=== PATIENT | female | born 1990 | race African-American/Black ===

== ENCOUNTER 2018-02-04 17:49 | Emergency (ER) | payer OTHER ==
[2018-02-04 18:00] VITALS: BP 122/90
[2018-02-04] MEDS ORDERED: LIDOCAINE 1% INJ-PF (10 MG/ML) 30 ML SDV INJ ONE (18:43)
--- NOTE | 2018-02-04 19:44 | ER Document Report ---
ED Hand/Wrist Injury - General Chief Complaint: Finger Injury Stated Complaint: FINGER INJURY Time Seen by Provider: 02/04/18 18:43 Notes: Patient is a 27-year-old healthy female presenting to the emergency department with a laceration to her left index finger. Patient was cutting tomatoes at work when she sliced her finger. Injury occurred approximately 5 hours to arrival. Patient's tetanus status is up-to-date. Bleeding is controlled at this time. There is no tendon involvement TRAVEL OUTSIDE OF THE [place] IN LAST 30 DAYS: No - HPI Onset: This afternoon Where: Work Quality of pain: Pressure - Related Data Allergies/Adverse Reactions: tramadol HCl [From [facility]] Adverse Reaction (Verified 02/04/18 17:50) itchy Past Medical History - General Information source: Patient - Social History Smoking Status: Never Smoker Chew tobacco use (# tins/day): Yes Frequency of alcohol use: Rare Drug Abuse: None Lives with: Family Family History: Reviewed & Not Pertinent, Hypertension Patient has suicidal ideation: No Patient has homicidal ideation: No Pulmonary Medical History: Reports: Hx Bronchitis Neurological Medical History: Reports: Hx Migraine Renal/ Medical History: Denies: Hx Peritoneal Dialysis Musculoskeltal Medical History: Reports Hx Musculoskeletal Trauma - clavicle Psychiatric Medical History: Reports: Hx Attention Deficit Hyperactivity Disorder, Hx Bipolar Disorder Traumatic Medical History: Reports: Hx Fractures - Immunizations Immunizations up to date: Yes Hx Diphtheria, Pertussis, Tetanus Vaccination: Yes Review of Systems - Review of Systems Constitutional: No symptoms reported EENT: No symptoms reported Cardiovascular: No symptoms reported Respiratory: No symptoms reported Gastrointestinal: No symptoms reported Genitourinary: No symptoms reported Female Genitourinary: No symptoms reported Musculoskeletal: No symptoms reported Skin: No symptoms reported Hematologic/Lymphatic: No symptoms reported Neurological/Psychological: No symptoms reported Physical Exam - Vital signs Vitals: Temp Pulse Resp BP Pulse Ox 98.9 F 89 18 122/90 H 99 02/04/18 17:59 02/04/18 17:59 02/04/18 17:59 02/04/18 17:59 02/04/18 17:59 Interpretation: Normal - General General appearance: Appears well, Alert - HEENT Head: Normocephalic, Atraumatic Eyes: Normal Pupils: PERRL - Respiratory Respiratory status: No respiratory distress Chest status: Nontender Breath sounds: Normal Chest palpation: Normal - Cardiovascular Rhythm: Regular Heart sounds: Normal auscultation Murmur: No - Abdominal Inspection: Normal Distension: No distension Bowel sounds: Normal Tenderness: Nontender Organomegaly: No organomegaly - Back Back: Normal, Nontender - Extremities General upper extremity: Normal inspection, Nontender, Normal color, Normal ROM , Normal temperature General lower extremity: Normal inspection, Nontender, Normal color, Normal ROM , Normal temperature, Normal weight bearing. No: Linda's sign - Neurological Neuro grossly intact: Yes Cognition: Normal Orientation: AAOx4 Summer Coma Scale Eye Opening: Spontaneous Summer Coma Scale Verbal: Oriented [place] Coma Scale Motor: Obeys Commands Summer Coma Scale Total: 15 Speech: Normal Motor strength normal: LUE, RUE, LLE, RLE Sensory: Normal - Psychological Associated symptoms: Normal affect, Normal mood - Skin Skin Temperature: Warm - 3cm flap lac to distal lateral index finger. pt able to flex and extend from DIP. no tendon involvement. distal SMC intact Skin Moisture: Dry Skin Color: Normal Skin irregularity: Laceration Course - Vital Signs Vital signs: Temp Pulse Resp BP Pulse Ox 98.9 F 89 18 122/90 H 99 02/04/18 17:59 02/04/18 17:59 02/04/18 17:59 02/04/18 17:59 02/04/18 17:59 Procedures - Immobilization left index finger Immobilizer type: Finger protection Performed by: PCT Post-Proc Neuro Vasc Exam: Normal Alignment checked and good: Yes - Laceration/Wound Repair Left index finger Wound length (cm): 3 Wound's Depth, Shape: Flap Wound explored: Clean Wound Repaired With: Sutures Suture Size/Type: 6:0, 5:0, Vicryl, 4:0, 3:0, Ethilon, Prolene, Nylon, Other Number of Sutures: 4 Layer Closure?: No Post-procedure NV exam normal: Yes Complications: No Discharge - Discharge Clinical Impression: Finger laceration Qualifiers: Encounter type: initial encounter Finger: index finger Damage to nail status: without damage Foreign body presence: without foreign body Laterality: left Qualified Code(s): S61.211A - Laceration without foreign body of left index finger without damage to nail, initial encounter Condition: Stable Disposition: HOME, SELF-CARE Instructions: Antibiotic Ointment Protection ([facility]), Laceration Care ([facility]), Soap Cleansing ([facility]), Ibuprofen (General) ([facility]) Additional Instructions: keep wound clean and dry watch for signs of infection, redness, swelling, drainage, fever return to ED for suture removal in 10 days Motrin for discomfort Prescriptions: Ibuprofen [Motrin 800 mg Tablet] 800 mg PO Q8H #30 tablet Forms: Return to Work
[2018-02-04] MEDS ORDERED: IBUPROFEN 800 MG TABLET PO ONE (19:46)
== END 2018-02-04 19:53 | disposition home or self-care (01) ==
LOC: ER 17:49
PROC: 0HQGXZZ Repair Left Hand Skin, External Approach (ICD-10-PCS; principal; 2018-02-04)
DX: S61.211A Laceration without foreign body of left index finger without damage to nail, initial encounter (principal); W26.0XXA Contact with knife, initial encounter; Y93.G1 Activity, food preparation and clean up
CPT/HCPCS: 99283; 12002; J3490

== ENCOUNTER 2018-02-15 13:08 | Emergency (ER) | payer OTHER ==
[2018-02-15 13:15] VITALS: BP 117/92
--- NOTE | 2018-02-15 13:16 | ER Document Report ---
HPI - HPI Patient complains to provider of: Suture removal Onset: Other - 10 days Quality of pain: Throbbing Pain Level: 4 Context: 27-year-old female here for suture removal of a left palmar index fingertip that were placed 10 days ago. She works at [email or web address]. She is worried that it is infected because it still hurts. Associated Symptoms: None Exacerbated by: Movement Relieved by: Denies Similar symptoms previously: No Recently seen / treated by doctor: No - ROS ROS below otherwise negative: Yes Systems Reviewed and Negative: Yes All other systems reviewed and negative - REPRODUCTIVE Reproductive: DENIES: : Past Medical History - General Information source: Patient - Social History Smoking Status: Current Every Day Smoker Frequency of alcohol use: None Drug Abuse: None Occupation: [email or web address] Lives with: Spouse/Significant other Family History: Reviewed & Not Pertinent, Hypertension Pulmonary Medical History: Reports: Hx Bronchitis Neurological Medical History: Reports: Hx Migraine Renal/ Medical History: Denies: Hx Peritoneal Dialysis Musculoskeltal Medical History: Reports Hx Musculoskeletal Trauma - clavicle Psychiatric Medical History: Reports: Hx Attention Deficit Hyperactivity Disorder, Hx Bipolar Disorder Traumatic Medical History: Reports: Hx Fractures Surgical Hx: Negative - Immunizations Immunizations up to date: Yes Hx Diphtheria, Pertussis, Tetanus Vaccination: Yes Vertical Provider Document - CONSTITUTIONAL Agree With Documented VS: Yes Exam Limitations: No Limitations - INFECTION CONTROL TRAVEL OUTSIDE OF THE [place] IN LAST 30 DAYS: No - HEENT HEENT: Atraumatic - NECK Neck: Supple - NEURO Level of Consciousness: Awake, Alert Motor/Sensory: No Motor Deficit, No Sensory Deficit - DERM Integumentary: Laceration - Wet healing palmar left index finger laceration, no infection. Course - Vital Signs Vital signs: Temp Pulse Resp BP Pulse Ox 99.0 F 84 18 117/92 H 98 02/15/18 13:14 02/15/18 13:14 02/15/18 13:14 02/15/18 13:14 02/15/18 13:14 Discharge - Discharge Clinical Impression: Suture removal Condition: Good Disposition: HOME, SELF-CARE Instructions: Suture Removal Additional Instructions: Dry dressing and [place] May return to work Forms: Return to Work
== END 2018-02-15 13:36 | disposition home or self-care (01) ==
LOC: ER 13:08
DX: S61.211D Laceration without foreign body of left index finger without damage to nail, subsequent encounter (principal); W45.8XXD Other foreign body or object entering through skin, subsequent encounter

== ENCOUNTER 2018-05-20 20:22 | Emergency (ER) | payer SELFPAY ==
[2018-05-20] MEDS ORDERED: ONDANSETRON HCL INJ/PF 4 MG/2 ML SDV IV ONE (21:17)
[2018-05-20] MEDS ORDERED: KETOROLAC TROMETHAMINE INJ/PF 30 MG/1 ML SDV IV ONE (21:17)
[2018-05-20 21:48] LABS: ABSOLUTE BASOPHILS # (AUTO) 0.1 10^3/uL (0.0-0.2); ABSOLUTE EOSINOPHILS # (AUTO) 0.3 10^3/uL (0.0-0.6); ABSOLUTE LYMPHOCYTES (AUTO) 3.7 10^3/uL (0.5-4.7); ABSOLUTE MONOCYTES (AUTO) 0.8 10^3/uL (0.1-1.4); BASOPHILS % (AUTO) 0.7 % (0-2); EOSINOPHILS % (AUTO) 2.3 % (0-6); HEMATOCRIT 47.9 % (36.0-47.0); HEMOGLOBIN 15.8 g/dL (12.0-15.5); LYMPHOCYTES % (AUTO) 30.9 % (13-45); MEAN CORPUSCULAR HEMOGLOBIN 30.8 pg (27.0-33.4); MEAN CORPUSCULAR VOLUME 93 fl (80-97); MONOCYTES % (AUTO) 6.8 % (3-13); PLATELET COUNT 334 10^3/uL (150-450); RED BLOOD COUNT 5.13 10^6/uL (3.72-5.28); RED CELL DISTRIBUTION WIDTH 14.2 % (11.5-14.0); SEGMENTED NEUTROPHILS % (AUTO) 59.3 % (42-78); TOTAL CELLS COUNTED % (AUTO) 100 %; WHITE BLOOD COUNT 11.9 10^3/uL (4.0-10.5)
[2018-05-20 21:51] LABS: APPEARANCE,URINE CLOUDY; BILIRUBIN,URINE MODERATE (NEGATIVE); COLOR,URINE YELLOW; GLUCOSE, URINE NEGATIVE (NEGATIVE); KETONES,URINE TRACE mg/dL (NEGATIVE); LEUKOCYTE ESTERASE,URINE MODERATE (NEGATIVE); NITRITE,URINE NEGATIVE (NEGATIVE); PROTEIN,URINE 100 mg/dL (NEGATIVE); URINE SPECIFIC GRAVITY 1.028
[2018-05-20 22:07] LABS: ALANINE AMINOTRANSFERASE 38 U/L (9-52); ALBUMIN 5.1 g/dL (3.5-5.0); ALKALINE PHOSPHATASE 69 U/L (38-126); ANION GAP 16 (5-19); ASPARTATE AMINO TRANSFERASE 37 U/L (14-36); BILIRUBIN,DIRECT 0.3 mg/dL (0.0-0.4); BILIRUBIN,TOTAL 0.5 mg/dL (0.2-1.3); BLOOD UREA NITROGEN 11 mg/dL (7-20); CALCIUM 10.5 mg/dL (8.4-10.2); CARBON DIOXIDE 28 mmol/L (22-30); CHLORIDE 100 mmol/L (98-107); GLUCOSE 46 mg/dL (75-110); LIPASE 93.5 U/L (23-300); POTASSIUM 3.8 mmol/L (3.6-5.0); SODIUM 143.9 mmol/L (137-145); TOTAL PROTEIN 9.3 g/dL (6.3-8.2)
--- NOTE | 2018-05-20 22:43 | ER Document Report ---
ED Medical Screen (RME) - General Chief Complaint: Possible Kidney Stone Stated Complaint: BACK PAIN/PASSING STONES IN URINE Time Seen by Provider: 05/20/18 22:34 Mode of Arrival: Ambulatory Information source: Patient Notes: z patient is a 28-year-old female who presents with chief complaint of right- sided flank pain that radiates into her right groin. Patient reports history of kidney stones. Patient also reports dysuria and low-grade fevers at home. Patient denies any vomiting or diarrhea. Exam: Right CVA tenderness. I have greeted and performed a rapid initial assessment of this patient. A comprehensive ED assessment and evaluation of the patient, analysis of test results and completion of the medical decision making process will be conducted by additional ED providers. Dictation of this chart was performed using voice recognition software; therefore, there may be some unintended grammatical errors. TRAVEL OUTSIDE OF THE [place] IN LAST 30 DAYS: No - Related Data Allergies/Adverse Reactions: tramadol HCl [From [facility]] Adverse Reaction (Verified 02/15/18 13:09) Swelling of tongue Past Medical History Pulmonary Medical History: Reports: Hx Bronchitis Neurological Medical History: Reports: Hx Migraine Renal/ Medical History: Denies: Hx Peritoneal Dialysis Musculoskeltal Medical History: Reports Hx Musculoskeletal Trauma - clavicle Psychiatric Medical History: Reports: Hx Attention Deficit Hyperactivity Disorder, Hx Bipolar Disorder Traumatic Medical History: Reports: Hx Fractures - Immunizations Immunizations up to date: Yes Hx Diphtheria, Pertussis, Tetanus Vaccination: Yes Physical Exam - Vital signs Vitals: Temp Pulse BP Pulse Ox 99.2 F 82 125/86 H 100 05/20/18 21:23 05/20/18 21:23 05/20/18 21:23 05/20/18 21:23 Course - Vital Signs Vital signs: Temp Pulse Resp BP Pulse Ox 99.2 F 82 125/86 H 100 05/20/18 21:23 05/20/18 21:23 05/20/18 21:23 05/20/18 21:23 - Laboratory Result Diagrams: 05/20/18 21:26 05/20/18 21:26 Laboratory results interpreted by me: 05/20/18 05/20/18 05/20/18 21:26 21:26 21:26 WBC 11.9 H Hgb 15.8 H Hct 47.9 H RDW 14.2 H Glucose 46 L Calcium 10.5 H AST 37 H Total Protein 9.3 H Albumin 5.1 H Urine Protein 100 H Urine Ketones TRACE H Urine Blood SMALL H Urine Bilirubin MODERATE H Urine Urobilinogen 4.0 H Ur Leukocyte Esterase MODERATE H Urine Ascorbic Acid 20 H
--- NOTE | 2018-05-20 23:14 | RADIOLOGY REPORT (SQ) ---
EXAM DESCRIPTION: CT ABDOMEN WITHOUT IV CONTRAST COMPLETED DATE/TME: 05/20/2018 22:42 CLINICAL HISTORY: 28 years Female, right flank pain, hx of renal stones Comparison: None. Technique: No contrast. Coronal and sagittal reformat. This exam was performed according to our departmental dose-optimization program, which includes automated exposure control, adjustment of the mA and/or kV according to patient size and/or use of iterative reconstruction technique.[facility]: Dose Right [facility]: CareDose [facility]: Dose Right [facility]: Teradose 4D [facility]: LonoCloud LIMITATIONS: None Findings: No significant free fluid in the abdomen or pelvis. No intra-abdominal free air. Normal appendix. No evidence of bowel obstruction or perforation. Moderately distended stomach with residual ingested contents. Unenhanced lower thorax, abdominopelvic structures, and musculoskeleton appear otherwise grossly unremarkable. Impression: No acute findings.
[2018-05-20] MEDS ORDERED: CEPHALEXIN 500 MG CAPSULE PO ONE (23:27)
--- NOTE | 2018-05-20 23:34 | ER Document Report ---
ED General - General Chief Complaint: Possible Kidney Stone Stated Complaint: BACK PAIN/PASSING STONES IN URINE Time Seen by Provider: 05/20/18 22:34 Mode of Arrival: Ambulatory Notes: Patient is an otherwise healthy 28-year-old female who presents with chief complaint of right flank pain, dysuria and urinary frequency. Patient reports this started yesterday. Patient reports history of kidney stones, thinks this is the same. Patient denies any fever, nausea or vomiting. TRAVEL OUTSIDE OF THE [place] IN LAST 30 DAYS: No - Related Data Allergies/Adverse Reactions: tramadol HCl [From [facility]] Adverse Reaction (Verified 02/15/18 13:09) Swelling of tongue Past Medical History - General Information source: Patient - Social History Smoking Status: Current Some Day Smoker Family History: Reviewed & Not Pertinent, Hypertension Pulmonary Medical History: Reports: Hx Bronchitis Neurological Medical History: Reports: Hx Migraine Renal/ Medical History: Denies: Hx Peritoneal Dialysis Musculoskeletal Medical History: Reports Hx Musculoskeletal Trauma - clavicle Psychiatric Medical History: Reports: Hx Attention Deficit Hyperactivity Disorder, Hx Bipolar Disorder Traumatic Medical History: Reports: Hx Fractures - Immunizations Immunizations up to date: Yes Hx Diphtheria, Pertussis, Tetanus Vaccination: Yes Review of Systems - Review of Systems Genitourinary: See HPI -: Yes All other systems reviewed and negative Physical Exam - Vital signs Vitals: Temp Pulse BP Pulse Ox 99.2 F 82 125/86 H 100 05/20/18 21:23 05/20/18 21:23 05/20/18 21:23 05/20/18 21:23 - Notes Notes: PHYSICAL EXAMINATION: GENERAL: Well-appearing, well-nourished and in no acute distress. HEAD: Atraumatic, normocephalic. EYES: Pupils equal round and reactive to light, extraocular movements intact, conjunctiva are normal. ENT: Nares patent, oropharynx clear without exudates. Moist mucous membranes. NECK: Normal range of motion, supple without lymphadenopathy LUNGS: Breath sounds clear to auscultation bilaterally and equal. No wheezes rales or rhonchi. HEART: Regular rate and rhythm without murmurs ABDOMEN: Soft, nontender, nondistended abdomen. No guarding, no rebound. No masses appreciated. Female : Right CVA tenderness. Musculoskeletal: Normal range of motion, no pitting or edema. No cyanosis. NEUROLOGICAL: Cranial nerves grossly intact. Normal speech, normal gait. Normal sensory, motor exams PSYCH: Normal mood, normal affect. SKIN: Warm, Dry, normal turgor, no rashes or lesions noted. Course - Re-evaluation Re-evalutation: Patient's examination relatively unremarkable other than right CVA tenderness. CBC reveals mildly elevated white blood count of 11.9 without shift. Comprehensive metabolic panel is unremarkable. Urinalysis reveals small blood, negative nitrates and moderate leukocyte esterase. CT is negative for any renal stones. Patient will be discharged home on antibiotics for urinary tract infection, urine will be sent for culture. Patient is agreeable to this plan and stable for discharge. - Vital Signs Vital signs: Temp Pulse Resp BP Pulse Ox 98.7 F 85 16 117/81 100 05/20/18 23:43 05/20/18 23:43 05/20/18 23:43 05/20/18 23:43 05/20/18 23:43 - Laboratory Result Diagrams: 05/20/18 21:26 05/20/18 21:26 Laboratory results interpreted by me: 05/20/18 05/20/18 05/20/18 21:26 21:26 21:26 WBC 11.9 H Hgb 15.8 H Hct 47.9 H RDW 14.2 H Glucose 46 L Calcium 10.5 H AST 37 H Total Protein 9.3 H Albumin 5.1 H Urine Protein 100 H Urine Ketones TRACE H Urine Blood SMALL H Urine Bilirubin MODERATE H Urine Urobilinogen 4.0 H Ur Leukocyte Esterase MODERATE H Urine Ascorbic Acid 20 H Discharge - Discharge Clinical Impression: Urinary tract infection Qualifiers: Urinary tract infection type: site unspecified Hematuria presence: without hematuria Qualified Code(s): N39.0 - Urinary tract infection, site not specified Condition: Stable Disposition: HOME, SELF-CARE Additional Instructions: URINARY TRACT INFECTION: Your evaluation indicates that you have a urinary tract infection. This is due to germs growing in the bladder. This is a common problem. This infection usually responds quickly to antibiotics. Your antibiotic should be taken exactly as prescribed. Drink plenty of fluids -- three to four quarts a day. Occasionally, a bladder anesthetic will be prescribed to help stop the feeling of urgency until the antibiotic has a chance to clear the infection. This may cause your urine to be dark orange. Certain urine infections require a culture. If the doctor obtained a culture, the results will be back in two days. You should call to see if a change in treatment is needed. A repeat urinalysis after you finish treatment is often recommended. The physician will let you know if further testing is required. Call the doctor if you develop fever, chills, flank pain, inability to urinate, or blood in the urine. ANTIBIOTIC THERAPY: You have been given an antibiotic prescription. It's important that you take all the medication, unless instructed otherwise by your physician. Failure to complete the entire course can result in relapse of your condition. Common side effects of antibiotics include nausea, intestinal cramping, or diarrhea. Women may develop vaginal yeast infections, and babies can get yeast (thrush) in the mouth following the use of antibiotics. Contact your physician if you develop significant side effects from this medication. Allergy to this antibiotic can result in hives, wheezing, faintness, or itching. If symptoms of allergy occur, stop the medication and call the doctor. CEPHALEXIN: The antibiotic you've been prescribed is a member of the cephalosporin class. This type of antibiotic covers a wide variety of infections, including those of the skin, lungs, and urinary tract. It's useful for staph infections. This antibiotic is slightly similar to the penicillin family. In rare cases , a person who is allergic to penicillin will also be allergic to this medication. If you have had a severe allergic reaction to penicillin, and have not taken this antibiotic since that time, notify your doctor. Antibiotics which cover many germs ("broad spectrum" antibiotics) are more likely to cause diarrhea or "yeast" infections. Women prone to vaginal yeast problems may suffer an attack after taking this antibiotic. In infants, oral thrush (white spots "stuck" on the cheek) or yeast diaper rash may result. See your doctor if these problems occur. Call at once if you develop itching, hives , shortness of breath, or lightheadedness. FOLLOW-UP CARE: If you have been referred to a physician for follow-up care, call the physician s office for an appointment as you were instructed or within the next two days. If you experience worsening or a significant change in your symptoms, notify the physician immediately or return to the Emergency Department at any time for re-evaluation. Prescriptions: Cephalexin Monohydrate [Keflex 500 mg Capsule] 500 mg PO Q6H 5 Days #20 capsule Forms: Special Work Note, Return to Work
[2018-05-20 23:44] VITALS: BP 117/81
== END 2018-05-20 23:44 | disposition home or self-care (01) ==
LOC: ER 20:22
DX: N39.0 Urinary tract infection, site not specified (principal); M54.9 Dorsalgia, unspecified; R10.9 Unspecified abdominal pain; F17.200 Nicotine dependence, unspecified, uncomplicated
CPT/HCPCS: 36415; 76380; 80053; 81001; 83690; 84703; 85025; 87086; 87088; 87186; 99284

== ENCOUNTER 2018-09-28 21:45 | Emergency (ER) | payer SELFPAY ==
[2018-09-29] MEDS ORDERED: CLINDAMYCIN HCL 150 MG CAPSULE PO ONE (02:25)
--- NOTE | 2018-09-29 02:27 | ER Document Report ---
ED General - General Chief Complaint: Knee Pain Stated Complaint: KNEE PAIN Time Seen by Provider: 09/29/18 02:16 Notes: Patient is a 28-year-old female who presents with complaint of redness and swelling over the outer medial aspect of her knee. She says it started as a small red bump. She thinks it is possible that she had been scratching and now is red and more painful. She is able to stand and walk but says is painful to do so. No history of surgeries to her knee. She has previous history of IV drug abuse but says she has not used IV drugs since June 2017. She has been clean since then. No vomiting. No diarrhea. No other complaints at this time. TRAVEL OUTSIDE OF THE [place] IN LAST 30 DAYS: No - Related Data Allergies/Adverse Reactions: tramadol HCl [From [address]] Adverse Reaction (Verified 02/15/18 13:09) Swelling of tongue Past Medical History - Social History Smoking Status: Current Every Day Smoker Frequency of alcohol use: None Drug Abuse: None Family History: Reviewed & Not Pertinent, Hypertension Patient has suicidal ideation: No Patient has homicidal ideation: No Pulmonary Medical History: Reports: Hx Bronchitis Neurological Medical History: Reports: Hx Migraine Renal/ Medical History: Denies: Hx Peritoneal Dialysis Musculoskeletal Medical History: Reports Hx Musculoskeletal Trauma - clavicle Psychiatric Medical History: Reports: Hx Attention Deficit Hyperactivity Disorder, Hx Bipolar Disorder Traumatic Medical History: Reports: Hx Fractures - Immunizations Immunizations up to date: Yes Hx Diphtheria, Pertussis, Tetanus Vaccination: Yes Review of Systems - Review of Systems Notes: My Normal Review Basic REVIEW OF SYSTEMS: CONSTITUTIONAL : Denies fever, chills, or sweats. Denies recent illness. MUSCULOSKELETAL: Redness over left knee. SKIN: Denies rash or skin lesions. NEUROLOGICAL: Denies sensory or motor loss. ALL OTHER SYSTEMS REVIEWED AND NEGATIVE. Physical Exam - Vital signs Vitals: Temp Pulse Resp BP Pulse Ox 99.5 F 136 H 14 123/76 97 09/28/18 22:03 09/28/18 22:03 09/28/18 22:03 09/28/18 22:03 09/28/18 22:03 - Notes Notes: General Appearance: Well nourished, alert, cooperative, no acute distress, moderate obvious discomfort. Vitals: reviewed, See vital signs table. Eyes: PERRL, EOMI, Conjuctiva clear Mouth: No decreasd moisture Lungs: No wheezing, No rales, No rhonci, No accessory muscle use, good air exchange bilaterally. Heart: Normal rate, Regular rythm, No murmur, no rub Extremities: strength 5/5 in all extremities, good pulses in all extremities, patient has a localized area of erythema over the upper medial aspect of the knee. Redness extends above the patella region and then superior medially. Approximately 4 cm area of erythema. There is a small 1 cm area not consistent with with where the redness initially stemmed from. I did do bedside ultrasound and there is not a drainable fluid collection at this time. Erythema and swelling all appears to be cutaneous and consistent with that of cellulitis. Skin: warm, dry, appropriate color, no rash Neuro: speech clear, oriented x 3, normal affect, responds appropriately to questions. Course - Re-evaluation Re-evalutation: 09/29/18 06:16 Patient looks well nontoxic appearing when she first arrived her heart rate was in the 130s. Patient says she is very anxious because she missed court this morning because of her knee. She requests that I fax a letter to her airport operations manager. Her airport operations manager requested that the doctor fax a letter saying that she is in the hosp ital. I did fax this letter to her airport operations manager, Cayden Willis, to the number she gave me which is [phone]. I encouraged her to hold onto her discharge paperwork as well in case they need further prove that she was here. Her heart rate improved while she was here without any significant intervention. I do not suspect she is toxic or septic. She seems to have a very localized cellulitis. I do not suspect septic joint as the patient does have range of motion of the knee and the redness and swelling seems very localized to the upper outer portion of the knee and does not seem to involve the inner knee joint itself. Patient will be discharged home but strongly encouraged to return to ER if she has redness spreading beyond the demarcated area that I made with the pen around the current area of redness. I encouraged her return to ER if she has fevers, worsening pain, or swelling. Patient agrees with plan will be discharged home. Dictation of this chart was performed using voice recognition software; therefore, there may be some unintended grammatical errors. - Vital Signs Vital signs: Temp Pulse Resp BP Pulse Ox 98.7 F 103 H 18 123/86 H 96 09/29/18 02:36 09/29/18 02:36 09/29/18 02:36 09/29/18 03:01 09/29/18 03:01 Discharge - Discharge Clinical Impression: Cellulitis Qualifiers: Site of cellulitis: extremity Site of cellulitis of extremity: lower extremity Laterality: left Qualified Code(s): L03.116 - Cellulitis of left lower limb Condition: Good Disposition: HOME, SELF-CARE Additional Instructions: Please take the antibiotic as prescribed. please use crutches to help have reduced pain and swelling in the knee. Please follow up with your primary care doctor or the ER in 2 days to recheck your knee. Please return to the ER immediately if you have redness spreading beyond the demarcated lines, increasing swelling, fevers, or feel that you are worsening in any way. Prescriptions: RX: Clindamycin HCl [Cleocin 150 mg Capsule] 300 mg PO Q6 #56 capsule Forms: Return to Work
[2018-09-29 03:22] VITALS: BP 123/86
== END 2018-09-29 03:25 | disposition home or self-care (01) ==
LOC: ER 21:45
DX: L03.116 Cellulitis of left lower limb (principal); M25.562 Pain in left knee
CPT/HCPCS: 99283

== ENCOUNTER 2019-09-09 08:57 | Emergency (ER) | payer SELFPAY ==
--- NOTE | 2019-09-09 09:52 | ER Document Report ---
HPI - HPI Time Seen by Provider: 09/09/19 09:41 Notes: 29-year-old female presents to the emergency room with left eye exudate, erythema which has become progressively worse over the last 24 hours. Patient states she does not wear contacts, she wore a colored contact once or twice in the last 2 months, but she does not wear eyeglasses or contacts for vision. She wears it for cosmetic reasons. Denies any blurred vision double vision or loss of vision. Denies any fevers or chills. Is not tried any warm compresses or any other [id number] medications. Went to school this morning and they told her to go to the emergency room to get evaluated. Patient states she is not class until tomorrow afternoon. Denies any trauma to the eye. Woke up this morning with green exudates. Denies fevers, chills, chest pain,palpitations, shortness of breath, dyspnea, nausea, vomiting, diarrhea, abdominal pain, hematuria,bLH, dizziness, syncope, headaches, wheezing, ST, URI, neck pain, weakness, bowel or bladder dysfunction, saddle anesthesia, numbness or tingling in bilateral upper or lower extremities equally, muscle paralysis, weakness in bilateral upper or lower extremities equally or rash. Denies IV drug use. - REPRODUCTIVE Reproductive: DENIES: : Past Medical History - General Information source: Patient - Social History Smoking Status: Unknown if Ever Smoked Family History: Reviewed & Not Pertinent, Hypertension Pulmonary Medical History: Reports: Hx Bronchitis Neurological Medical History: Reports: Hx Migraine Renal/ Medical History: Denies: Hx Peritoneal Dialysis Musculoskeletal Medical History: Reports Hx Musculoskeletal Trauma - clavicle Psychiatric Medical History: Reports: Hx Attention Deficit Hyperactivity Disorder, Hx Bipolar Disorder Traumatic Medical History: Reports: Hx Fractures - Immunizations Immunizations up to date: Yes Hx Diphtheria, Pertussis, Tetanus Vaccination: Yes Vertical Provider Document - CONSTITUTIONAL Agree With Documented VS: Yes Exam Limitations: No Limitations General Appearance: WD/WN Notes: PHYSICAL EXAMINATION: reviewed vital signs by RN GENERAL: Well-appearing, well-nourished and in no acute distress. HEAD: Atraumatic, normocephalic. EYES: Pupils equal round and reactive to light, extraocular movements intact, conjunctiva are normal. PERRLA, normal accommodation, EMOI, peripheral vision bilaterally and equally. notee green exudates noted on left conjunctiva. red reflex wnl. f Normal fundi and optic discs. Corneas grossly clear. No nystagmus bilaterally. No ptosis, photophobia. v ENT: Nares patent, oropharynx clear without exudates. Moist mucous membranes. NECK: Normal range of motion, supple without lymphadenopathy LUNGS: Breath sounds clear to auscultation bilaterally and equal. No wheezes rales or rhonchi. HEART: Regular rate and rhythm without murmurs ABDOMEN: Soft, nontender, nondistended abdomen. No guarding, no rebound. No masses appreciated. Female : deferred Musculoskeletal: Normal range of motion, no pitting or edema. No cyanosis. NEUROLOGICAL: Cranial nerves grossly intact. Normal speech, normal gait. Normal sensory, motor exams PSYCH: Normal mood, normal affect. SKIN: Warm, Dry, normal turgor, no rashes or lesions noted. - INFECTION CONTROL TRAVEL OUTSIDE OF THE [place] IN LAST 30 DAYS: No Course - Re-evaluation Re-evalutation: 09/09/19 09:52 Afebrile vital stable no distress. Nurse's notes reviewed.Patient presents with symptoms most consistent with a viral conjunctivitis. Bilateral eye involvement without purulent drainage. Patient does not hhave associated upper respiratory symptoms again suggesting a viral etiology of the conjunctivitis. pt is otherwise very well in appearance, no acute distress, vitals within normal limits. will be discharged with a prescription for Polytrim eyedrops which they can begin today. pt are in agreement with this plan and verbalized indications to return to the emergency department. After performing a Medical Screening Examination, I estimate there is LOW risk for a RETAINED CORNEAL or LID FOREIGN BODY, DEEP SPACE INFECTION (e.g., ORBITAL CELLULITIS OR ABSCESS), ACUTE GLAUCOMA, PENETRATING GLOBE INJURY, RETINAL DETACHMENT, or MENINGITIS thus I consider the discharge disposition reasonable. I have reevaluated this patient multiple times and no significant life threatening changes are noted. Also, there is no evidence or peritonitis, sepsis, or toxicity. The patient and I have discussed the diagnosis and risks, and we agree with discharging home with outpatient follow-up with the understanding that symptoms and presentations can change. We also discussed returning to the Emergency Department immediately if new or worsening symptoms occur. We have discussed the symptoms which are most concerning (e.g., changing or worsening pain, vision changes, neck stiffness or fever) that necessitate immediate return. - Vital Signs Vital signs: Temp Pulse Resp BP Pulse Ox 98.7 F 75 18 114/72 98 09/09/19 09:15 09/09/19 09:15 09/09/19 09:15 09/09/19 09:15 09/09/19 09:15 Discharge - Discharge Clinical Impression: Bacterial conjunctivitis of left eye Condition: Stable Disposition: HOME, SELF-CARE Instructions: Conjunctivitis ([facility]), Eyedrop Use ([facility]) Additional Instructions: Conjunctivitis You have an infection in your eye, commonly known as "pink eye." Conjunctivitis causes redness, mild discomfort, itching, and mattering on the eyelids. It is very contagious, so you must be careful to wash your hands after touching your face so you don't pass the infection on to others. Conjunctivitis is caused by both viruses and bacteria. It usually responds quickly to treatment with antibiotic drops. These should be placed in the eye as prescribed (usually every three to four hours while you're awake). If you wear contact lenses, don't put them in your eyes until the infection is cleared and you are no longer using the drops (unless your doctor advises you otherwise). Should you develop increasing eye pain, severe swelling, decreased vision, or fail to improve as expected, please return for re-examination. Follow-up with eye doctor as needed . Warm compress to site 20 minutes on 20 minutes off several times a day. Use drops as directed. You are contagious for 24 hours after starting eyedrops. Return immediately for any new or worsening symptoms. Follow up with primary care provider, call tomorrow to make followup appointment. Prescriptions: Polymyxin B Sulfate/Tmp [Polytrim Oph Soln 10 ml] 1 drop OP ASDIR PRN #1 bottle PRN Reason: Forms: Return to Work, Return to School Referrals: INDY MALIN MD [ACTIVE STAFF] - Follow up as needed RACHELLE MARTINEZ MD [ACTIVE STAFF] - Follow up as needed
[2019-09-09 16:12] VITALS: BP 116/72
== END 2019-09-09 09:50 | disposition home or self-care (01) ==
LOC: ER 08:57
DX: H10.9 Unspecified conjunctivitis (principal); B96.89 Other specified bacterial agents as the cause of diseases classified elsewhere
CPT/HCPCS: 99282

== ENCOUNTER 2020-06-17 14:19 | Emergency (ER) | payer SELFPAY ==
[2020-06-17 14:25] VITALS: BP 128/80
--- NOTE | 2020-06-17 15:05 | ER Document Report ---
HPI - HPI Time Seen by Provider: 06/17/20 14:59 Pain Level: 1 Notes: CHIEF COMPLAINT: Left lower eyelid swelling HPI: 30-year-old female presenting for swelling of the left lower eyelid yesterday and today improved this morning. No difficulty with vision. Denies ocular pain. No trauma. No fever or recent illness ROS: See HPI - all other systems were reviewed and are otherwise negative Constitutional: no fever Eyes: no drainage, no blurred vision positive lower eyelid swelling ENT: no runny nose, no sore throat Integumentary: no rash Allergy: no hives MEDICATIONS: I agree with the patient medications as charted by the RN. ALLERGIES: I agree with the allergies as charted by the RN. PAST MEDICAL HISTORY/PAST SURGICAL HISTORY: Reviewed and agree as charted by RN. SOCIAL HISTORY: Reviewed and agree as charted by RN. FAMILY HISTORY: No significant familial comorbid conditions directly related to patient complaint EXAM: Reviewed vital signs as charted by RN. CONSTITUTIONAL: Alert and oriented and responds appropriately to questions. Well-appearing; well-nourished HEAD: Normocephalic; atraumatic EYES: PERRL; Conjunctivae clear, sclerae non-icteric. There is some swelling and erythema to the lower eyelid without a definitive stye noted, no firmness but there is some lower periorbital swelling ENT: normal nose; no rhinorrhea; moist mucous membranes; pharynx without lesions noted, no uvula edema or deviation, no tonsillar hypertrophy, phonation normal NECK: Supple without meningismus; non-tender; no cervical lymphadenopathy, no masses CARD: symmetric distal pulses RESP: Normal chest excursion without splinting or tachypnea ABD/GI: non-distended BACK: The back appears normal EXT: Normal ROM in all joints; no cyanosis, no effusions, no edema SKIN: Normal color for age and race; warm; dry; good turgor NEURO: Moves all extremities equally; Motor and sensory function intact PSYCH: The patient's mood and manner are appropriate. Grooming and personal hygiene are appropriate. MDM: 30-year-old female with lower eyelid swelling since yesterday I suspect a stye or hordeolum although I do not definitively see or palpate [address] on erythromycin ointment Keflex follow-up ophthalmology. No vesicular rash suggesting shingles. - EENT EENT: REPORTS: Eye problems - REPRODUCTIVE Reproductive: DENIES: : Past Medical History - Social History Smoking Status: Former Smoker Family History: Reviewed & Not Pertinent, Hypertension Pulmonary Medical History: Reports: Hx Bronchitis Neurological Medical History: Reports: Hx Migraine Renal/ Medical History: Denies: Hx Peritoneal Dialysis Musculoskeletal Medical History: Reports Hx Musculoskeletal Trauma - clavicle Psychiatric Medical History: Reports: Hx Attention Deficit Hyperactivity Disorder, Hx Bipolar Disorder Traumatic Medical History: Reports: Hx Fractures - Immunizations Immunizations up to date: Yes Hx Diphtheria, Pertussis, Tetanus Vaccination: Yes Vertical Provider Document - INFECTION CONTROL TRAVEL OUTSIDE OF THE [place] IN LAST 30 DAYS: No Course - Vital Signs Vital signs: Temp Pulse Resp BP Pulse Ox 98.5 F 94 16 128/80 H 96 06/17/20 14:24 06/17/20 14:24 06/17/20 14:24 06/17/20 14:24 06/17/20 14:24 Discharge - Discharge Clinical Impression: Stye external Qualifiers: Laterality: left Eyelid: lower Qualified Code(s): H00.015 - Hordeolum externum left lower eyelid Condition: Stable Disposition: HOME, SELF-CARE Additional Instructions: Take the antibiotics as prescribed. Warm compresses to the eye is much as possible return for worsening swelling or follow-up with ophthalmology or optometry for reevaluation Prescriptions: Erythromycin Base [Erythromycin Oph 1 Gm Oint Ud] 1 applic OS BID 5 Days #1 tube Cephalexin Monohydrate [Keflex 500 mg Capsule] 500 mg PO Q6H 7 Days #28 capsule Forms: Return to Work Referrals: SHIRLEY MORALES MD [ACTIVE STAFF] - Follow up as needed
== END 2020-06-17 15:04 | disposition home or self-care (01) ==
LOC: ER 14:19
DX: H00.015 Hordeolum externum left lower eyelid (principal); Z87.891 Personal history of nicotine dependence
CPT/HCPCS: 99283